=== PATIENT | female | born 1960 | race Caucasian/White ===

== ENCOUNTER 2016-07-24 15:31 | Emergency (ER) | payer MEDICAID, OTHER ==
[~2016-07-24] VITALS: Ht 170.2 cm; Wt 49.9 kg
[2016-07-24 15:31] VITALS: BP 142/99
--- NOTE | 2016-07-24 16:30 | NUR ---
called - no answer
[2016-07-24 17:18] LABS: APPEARANCE,URINE Clear (CLEAR); BILIRUBIN,URINE Negative (NEGATIVE); BLOOD, URINE Negative Ery/uL (NEGATIVE); COLOR,URINE Yellow (YELLOW); KETONES,URINE Negative (NEGATIVE); LEUKOCYTE ESTERASE ,URINE Negative (NEGATIVE); NITRITE, URINE Negative (NEGATIVE); PROTEIN,URINE Negative (NEGATIVE); UGLUCOSE Negative (NEGATIVE); UROBILINOGEN,URINE 0.2 EU/dL (0.2)
[2016-07-26 20:20] LABS: *NEISSERIA GONORRHOEAE NAA Negative (Negative); CHLAMYDIA TRACHOMATIS NAA Negative (Negative)
== END 2016-07-24 17:56 | disposition home or self-care (01) ==
LOC: EDBD 15:34 → ER 15:34
DX: R10.30 Lower abdominal pain, unspecified (principal); F99 Mental disorder, not otherwise specified; F17.210 Nicotine dependence, cigarettes, uncomplicated; F41.9 Anxiety disorder, unspecified
CPT/HCPCS: 81001; 87491; 87591; 99284; A4606; Z7610; 81000-TC